=== PATIENT | female | born 1970 | race Caucasian/White ===

== ENCOUNTER 2016-07-09 20:32 | Emergency (ER) | payer OTHER ==
--- NOTE | ~2016-07-09 | CR230 ---
[facility] A Service of [facility] & [facility] RADIOLOGY TEXT RESULTS PATIENT: CHAO DE SOUZA LOCATION: CFTX : 66 UNIT #: [id number] AGE: [address]: HOWIE MENARD APRN SEX: F ORDER DR: [id number] [facility] [address] [place], [place] [address] [id number] E MR#: [id number] Acc #: [id number] NAME: CHAO DE SOUZA : 1970 SEX: F STUDY DATE/TIME: 07/09/2016 21:16 UNIT: [facility] ROOM: STUDY DESCRIPTION: CR Shoulder Min 2 View Rt Attending Physician: Howie Menard Aprn Ordering Physician: Howie Menard Aprn Primary Care Physician: Alhaji Harris M.D. MEDICAL IMAGING REPORT This report is preliminary unless electronic signature is present EXAM Right shoulder 2 views HISTORY 3 views HISTORY Right shoulder pain for 1 week. No known injury. FINDINGS 3 views of the right shoulder demonstrates no fracture or dislocation. Small amount of calcification is noted along the greater tuberosity and may represent a component of calcific tendinitis at the rotator cuff insertion. AC joint unremarkable. Visualized right thorax appears normal. Dictated by... Toy Rodriges M.D. THIS IS AN ELECTRONICALLY VERIFIED REPORT Toy Rodriges M.D. at 07/09/2016 10:34 PM Radha TD: 07/09/2016 22:28 JOB #: [id number] MEDICAL IMAGING REPORT Page 1 of 1 COPY
[~2016-07-09 20:32] MED LIST: ALBUTEROL17 GM INH; ATENOLOL PO; AUGMENTIN PO; BACLOFEN10 MG PO; BACLOFEN20 M1 PO; BCP; BENAZEPRIL PO; BENZAPRIL; BIRTH CONTROL PILL; BIRTH CONTROL PILL PO; CELEXA PO; CELEXA20 MG PO; DESYREL100 MG PO; DOLOBID PO; EC-NAPROSYN500 MG PO; FISH OIL 1,0001 CA2 PO; FISH OIL 1,0001 EAC2 PO; FLONASE16 GM; K-DUR20 ME1 PO; KCL PO; LASIX PO; LORTAB 7.5-5001 TAB PO; LOVASTATIN10 MG PO; LOVASTATIN20 MG PO; METFORMIN HCL500 M1 PO; METFORMIN PO; MULTIVITAMIN1 UDCAP PO; NAPROSYN500 MG PO; NEURONTIN300 MG PO; NEURONTIN800 MG PO; NIASPAN PO; NOSE SPRAY; PEN-VEE K PO; PROZAC40 MG PO; TAMIFLU75 M1 PO; TESSALON200 MG PO; TRAZODONE HCL100 MG PO; ULTRAM PO; VIBRAMYCIN100 M1 PO; VICODIN 5/500 T1 TAB PO; VITAMIN; VOLTAREN75 MG PO
== END 2016-07-09 23:10 | disposition home or self-care (01) ==
LOC: CED 20:32 → CFTX 20:32
DX: S46.911A Strain of unspecified muscle, fascia and tendon at shoulder and upper arm level, right arm, initial encounter (principal); M75.101 Unspecified rotator cuff tear or rupture of right shoulder, not specified as traumatic; F17.210 Nicotine dependence, cigarettes, uncomplicated; E11.9 Type 2 diabetes mellitus without complications; J44.9 Chronic obstructive pulmonary disease, unspecified; Z79.899 Other long term (current) drug therapy; Z88.1 Allergy status to other antibiotic agents; Z88.8 Allergy status to other drugs, medicaments and biological substances; Z88.5 Allergy status to narcotic agent; X58.XXXA Exposure to other specified factors, initial encounter; Y92.009 Unspecified place in unspecified non-institutional (private) residence as the place of occurrence of the external cause
CPT/HCPCS: 73030; 99283

== ENCOUNTER 2016-08-20 20:48 | Emergency (ER) | payer OTHER ==
--- NOTE | ~2016-08-20 | CR230 ---
[facility] A Service of [facility] & [facility] RADIOLOGY TEXT RESULTS PATIENT: CHAO DE SOUZA LOCATION: CFTX : 66 UNIT #: [id number] AGE: [address]: Josefina Domingo APRN SEX: F ORDER DR: [id number] [facility] [address] [place], [place] [address] [id number] E MR#: [id number] Acc #: [id number] NAME: CHAO DE SOUZA : 1970 SEX: F STUDY DATE/TIME: 08/20/2016 22:59 UNIT: [facility] ROOM: STUDY DESCRIPTION: CR Shoulder Min 2 View Rt Attending Physician: Josefina Domingo A.P.R.N. Ordering Physician: Josefina Domingo A.P.R.N. Primary Care Physician: Shimon Subramanian Pa-C MEDICAL IMAGING REPORT This report is preliminary unless electronic signature is present EXAM Right shoulder series. INDICATIONS Right shoulder pain for the past 8 months, no known injury. PROCEDURE Two views, right shoulder. COMPARISON None. 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 No acute fracture or dislocation. 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 No acute findings. Dictated by... Ortiz Acuña M.D. THIS IS AN ELECTRONICALLY VERIFIED REPORT Ortiz Acuña M.D. at 08/26/2016 3:08 PM EED/kate TD: 08/21/2016 12:29 JOB #: [id number] MEDICAL IMAGING REPORT Page 1 of 1 COPY
== END 2016-08-21 00:18 | disposition home or self-care (01) ==
LOC: CED 20:48 → CFTX 20:48
DX: M25.511 Pain in right shoulder (principal); G89.29 Other chronic pain; F17.210 Nicotine dependence, cigarettes, uncomplicated; E11.9 Type 2 diabetes mellitus without complications; Z79.4 Long term (current) use of insulin; J44.9 Chronic obstructive pulmonary disease, unspecified; E78.5 Hyperlipidemia, unspecified; Z88.5 Allergy status to narcotic agent; Z88.1 Allergy status to other antibiotic agents; Z88.8 Allergy status to other drugs, medicaments and biological substances
CPT/HCPCS: 73030; 82947; 96372; 99283; J1885